=== PATIENT | male | born 1960 | race Caucasian/White ===

== ENCOUNTER 2021-06-03 12:05 | Day surgery (SDC) | payer MEDICAID, MEDICARE ==
[2021-05-28 15:16] VITALS: BMI 26.9
[~2021-06-03 12:05] MED LIST: ACETAMINOPHEN TAB 500 MG TAB PO PRN; DEXAMETHASONE SOD PHOSPHATE 4 MG/ML 1 ML VIAL IV ONE; HEPARIN SODIUM,PORCINE/PF 5,000 UNIT/0.5 ML SYRINGE SQ PRN; HYDROmorphone 0.5 MG/0.5 ML SYRINGE IVP PRN; LACTATED RINGERS 1,000 ML IV SCH; LIDOCAINE 1% (10MG/ML) FOR IV START INTRADERMA PRN; MIDAZOLAM 2 MG/2 ML VIAL IV PRN; ONDANSETRON 4 MG/2 ML VIAL IVP ONE; Pre Op ABX Message 1 EACH MISC MISCELLANE ONE; fentaNYL (PF) 50 MCG/ML 2 ML AMP IV PRN
--- NOTE | 2021-06-03 13:41 | P.GSHP ---
History of Present Illness H&P Date: 06/03/21 Chief Complaint: Pancreatic cancer 61-year-old male here today for Port-A-Cath placement. Patient recently diagnosed with pancreatic cancer. Had a biliary stent placed. Starting chemotherapy next week. He has not had a port previously. Past Medical History Past Medical History: Cancer, COPD, Fibromyalgia, GERD/Reflux, Hyperlipidemia Additional Past Medical History / Comment(s): pancreatic CA-dx [id number] and gas discomfort,was having jaundic,SOB w/ activity History of Any Multi-Drug Resistant Organisms: None Reported Past Surgical History: Appendectomy, Cholecystectomy Additional Past Surgical History / Comment(s): stent insert bile duct @ [facility] Past Anesthesia/Blood Transfusion Reactions: No Reported Reaction Additional Past Anesthesia/Blood Transfusion Reaction / Comment(s): no hx blood transfusion Smoking Status: Vaper - Past Family History Mother Family Medical History: No Reported History Father Additional Family Medical History / Comment(s): mesothelioma Brother(s) Family Medical History: Cancer Additional Family Medical History / Comment(s): testicular CA-older brother,skin CA-younger brother Medications and Allergies Home Medications Medication Instructions Recorded Confirmed Type DULoxetine HCL [Cymbalta] 30 mg PO QAM 05/28/21 06/03/21 History Gabapentin 800 mg PO TID 05/28/21 06/03/21 History HYDROcodone/APAP 10-325MG [[place] 1 tab PO Q6HR 05/28/21 06/03/21 History 10-325] Omeprazole 20 mg PO HS 05/28/21 06/03/21 History Rosuvastatin Calcium [Crestor] 40 mg PO DAILY 05/28/21 06/03/21 History Allergies Allergy/AdvReac Type Severity Reaction Status Date / Time itraconazole [From Sporanox] Allergy severe Verified 05/28/21 15:02 hives,flushing Penicillins Allergy feet Verified 05/28/21 15:02 swelling Surgical - Exam Vital Signs Temp Pulse Resp BP Pulse Ox 97.5 F L 74 16 124/74 95 06/03/21 12:35 06/03/21 12:35 06/03/21 12:35 06/03/21 12:35 06/03/21 12:35 Physical exam: General: Well-developed, well-nourished HEENT: Normocephalic, sclerae nonicteric Abdomen: Nontender, nondistended Extremities: No edema Neuro: Alert and oriented Assessment and Plan (1) Pancreatic cancer Narrative/Plan: Will proceed with Port-A-Cath placement at this time. Risks of bleeding, infection, DVT, pneumothorax, catheter malfunction, anesthesia related complications were discussed. The patient understands and wishes to proceed. Current Visit: Yes Status: Acute Code(s): C25.9 - MALIGNANT NEOPLASM OF PANCREAS, UNSPECIFIED SNOMED Code(s): 838300805
[2021-06-03] MEDS ORDERED: HEPARIN SODIUM,PORCINE/PF 5,000 UNIT/0.5 ML SYRINGE SQ STA (13:42)
[2021-06-03] MEDS ORDERED: CLINDAMYCIN 600 MG in DEXTROSE 5% IN WATER 50 ML IVPB STA ×2 (13:44)
[2021-06-03] MEDS ORDERED: MIDAZOLAM 2 MG/2 ML VIAL ONE (13:55)
[2021-06-03] MEDS ORDERED: fentaNYL (PF) 50 MCG/ML 2 ML AMP ONE (13:55)
[2021-06-03] MEDS ORDERED: ePHEDrine SULFATE/0.9% NACL/PF 50 MG/5 ML SYRINGE IV ONE (13:55)
[2021-06-03] MEDS ORDERED: PROPOFOL 10 MG/ML 20 ML VIAL IV ONE (13:55)
[2021-06-03] MEDS ORDERED: LIDOCAINE 1% INJ 10MG/ML (20 ML MDV) ONE (13:55)
[2021-06-03] MEDS ORDERED: SODIUM CHLORIDE 0.9% 100 ML with ceFAZolin 2,000 MG IV ONE ×2 (14:15)
[2021-06-03] MEDS ORDERED: HEPARIN SODIUM,PORCINE 100 UNIT/ML 5 ML VIAL IV ONE (14:18)
[2021-06-03] MEDS ORDERED: LIDOCAINE (PF) 10 MG/ML 2 ML VIAL SQ ONE (14:18)
[2021-06-03 14:54] VITALS: TEMP 97.8
[2021-06-03] MEDS ORDERED: HYDROcodone/APAP 5-325MG 1 EACH TAB PO PRN (14:54)
[2021-06-03] MEDS ORDERED: NALOXONE 0.4 MG/ML 1 ML VIAL IV PRN (14:54)
--- NOTE | 2021-06-03 14:56 | P.OP ---
Date of Procedure: 06/03/21 Procedure(s) Performed: PREOPERATIVE DIAGNOSIS: Pancreatic cancer POSTOPERATIVE DIAGNOSIS: Same PROCEDURE: Port-A-Cath placement with fluoroscopic and ultrasound guidance SURGEON: Amanda EBL: Minimal ANESTHESIA: Sedation COMPLICATIONS: None OPERATIVE PROCEDURE: Patient was brought and placed on the operative table in the supine position. The patient was sedated per anesthesia that time. The chest and neck were prepped and draped in usual sterile fashion. The ultrasound probe was used to identify the location of the right internal jugular vein. The skin was localized with lidocaine. The Seldinger needle was advanced into the IJ under ultrasound guidance. The wire was advanced through the needle under fluoroscopic guidance into the superior vena cava. A port pocket was created in the right infraclavicular location. The catheter was tunneled from the wire entrance site to the port pocket. The port was then connected to the catheter. The dilator introducer was threaded over the guidewire. The guidewire and dilator were then removed. The catheter was advanced through the introducer and introducer was then removed. The tip was seen to be in the right atrial junction via fluoroscopy. A picture of the radiograph showing the tip at the radial digital junction was taken. Port was flushed with both saline and a Hep- Lock solution. There was good flow both in and out of the port. The port was sutured in underlying tissues using 3-0 silk sutures. The subcutaneous tissues were reapproximated using 3-0 Vicryl sutures and the skin at both locations using 4-0 Monocryl sutures. Skin glue and sterile dressings then applied. DISPOSITION: Stable to recovery room
[2021-06-03 15:04] VITALS: RESP 16
[2021-06-03] MEDS ORDERED: HYDROmorphone 0.5 MG/0.5 ML SYRINGE IVP ONE ×2 (15:22→15:28)
--- NOTE | 2021-06-03 15:39 | XR ---
EXAMINATION TYPE: XR chest 1V portable DATE OF EXAM: 06/03/2021 COMPARISON: NONE HISTORY: Port-A-Cath placement TECHNIQUE: Single frontal view of the chest is obtained. FINDINGS: There is no focal air space opacity, pleural effusion, or pneumothorax seen. The cardiac silhouette size is within normal limits. Port-A-Cath is present over the right chest, catheter tip is overlying the superior vena cava. Catheter courses via the internal jugular approach. Interstitium is prominent. The osseous structures are intact. IMPRESSION: No evident complication status post Port-A-Cath placement.
[2021-06-03] MEDS ORDERED: LACTATED RINGERS 1,000 ML IV ONE (15:45)
--- NOTE | 2021-06-03 16:17 | FL ---
Fluoroscopy HISTORY: Port-A-Cath catheter placement 10 seconds fluoroscopy time supplied to the referring clinician. 5 intraoperative C-arm images docum ent the procedure. See dictated report from general surgery.
[2021-06-03 16:18] VITALS: BP 112/69; PULSE 82
== END 2021-06-03 16:43 | disposition home or self-care (01) ==
LOC: OR 12:05
PROVIDERS: ATTEND Surgery
DX: C25.9 Malignant neoplasm of pancreas, unspecified (principal); J44.9 Chronic obstructive pulmonary disease, unspecified; E78.5 Hyperlipidemia, unspecified; K21.9 Gastro-esophageal reflux disease without esophagitis; M79.7 Fibromyalgia; Z88.0 Allergy status to penicillin; Z88.3 Allergy status to other anti-infective agents; Z90.49 Acquired absence of other specified parts of digestive tract
CPT/HCPCS: 36561; 77001; 71045; C1788; J2250; J2001 ×2; J1642; J1100; J2405; J0690; J3010; J2704; J1170; J1644

== ENCOUNTER → 2021-07-29 | Outpatient (CLI) | payer MEDICARE ==
[2021-07-29 11:37] LABS: African American GFR (CKD) >90 (>60 ml/min/1.73 sqM); Blood Urea Nitrogen 14 mg/dL (9-20); Non-African American GFR(CKD) >90 (>60 ml/min/1.73 sqM)
--- NOTE | 2021-07-29 13:50 | CT ---
EXAMINATION TYPE: CT ChestAbdPelvis w con DATE OF EXAM: 07/29/2021 COMPARISON: None at this institution. HISTORY: Cancer head of pancreas CT DLP: 1815 mGycm. Automated Exposure Control for Dose Reduction was Utilized. CONTRAST: CT scan of the thorax, abdomen and pelvis is performed with oral contrast and water and with IV Contr ast, patient injected with 100 ml mL of Isovue 300. FINDINGS: LUNGS: Moderate underlying emphysematous changes are present.. Mild biapical scarring. No suspicious nodules or masses. No pleural effusion or pneumothorax. No focal consolidation. MEDIASTINUM: There are no greater than 1 cm hilar or mediastinal lymph nodes. No cardiomegaly or pamela cardial effusion is seen. OTHER: Right internal jugular Mediport catheter terminates in SVC. LIVER/GB: Liver is markedly heterogeneously hypodense consistent with diffuse fatty infiltration. Melanie er upper limits of normal in size. Pneumobilia is present. There is extrahepatic biliary metallic irvin nt noted. No suspicious biliary dilatation. PANCREAS: Pancreas overall heterogeneous in appearance particularly in the head and proximal body wit h mild to moderate ill-defined fluid at the level of the pancreatic tail. Likely some pancreatic duct al dilatation in the body axial image 72. Areas more heterogeneous fullness likely mass near the head uncinate process junction with indistinct fat plane from the adjacent duodenal sweep measuring 3.2 x 2.7 cm axial image 78. Just inferior and anterior to the proximal to mid pancreatic body there is ov al 2.7 x 1.7 cm lesion axial image 79 just posterior to the gastric antrum could reflect abnormal low dense adenopathy. SPLEEN: No significant abnormality is seen. ADRENALS: No significant abnormality is seen. KIDNEYS: Symmetric cortical medullary uptake and excretion without hydronephrosis seen bilaterally. BOWEL: An air-fluid level in the mild to moderately distended stomach. No suspicious small or large b owel dilatation. GENITAL ORGANS: Mildly enlarged prostate consistent with BPH. Scattered right-sided pelvic phlebolith s. LYMPH NODES: Prominent but subcentimeter additional lymph nodes in the region of the pancreatic head and tracey hepatis are noted.. OSSEOUS STRUCTURES: No significant abnormality is seen. OTHER: No significant additional abnormality is seen. IMPRESSION: Metallic biliary stent presumed patent as there is no significant biliary dilatation as t here is central pneumobilia. Pancreatic findings as detailed above should be correlated with pretreat ment images . No obvious metastatic disease.
== END | disposition home or self-care (01) ==
LOC: RADCTMAIN 10:43
PROVIDERS: ATTEND Internal Medicine Hematology & Oncology
DX: C25.0 Malignant neoplasm of head of pancreas (principal)
CPT/HCPCS: 82565; 84520; 71260; 74177; 36415; Q9967

== ENCOUNTER → 2021-09-27 | Outpatient (CLI) | payer MEDICARE ==
[2021-09-27 11:32] LABS: African American GFR (CKD) >90 (>60 ml/min/1.73 sqM); Blood Urea Nitrogen 10 mg/dL (9-20); Non-African American GFR(CKD) >90 (>60 ml/min/1.73 sqM)
--- NOTE | 2021-09-27 13:07 | CT ---
EXAMINATION TYPE: CT ChestAbdPelvis w con DATE OF EXAM: 09/27/2021 COMPARISON: 07/29/2021 HISTORY: h/o pancreatic CA CT DLP: 1001.9 mGycm CONTRAST: CT scan of the chest, abdomen and pelvis is performed with Oral Contrast and with IV Contrast, patien t injected with 100 mL of Isovue 300. CT Chest: LUNGS: Stable emphysematous changes noted. The lungs are clear and free of infiltrate or atelectasis. No pulmonary nodule or mass is detected. No pleural effusion or CT evidence of interstitial lung d isease. MEDIASTINUM: Thoracic aorta is of normal caliber. The heart is not enlarged. No evidence for media stinal mass or adenopathy. HILAR STRUCTURES: No evidence for mass. No hilar adenopathy is appreciated. OTHER: No significant abnormality. CONTRAST CT ABDOMEN AND PELVIS FINDINGS: LIVER/GB: Persistent hepatomegaly with pneumobilia. Biliary stent noted to be in place. No calcifie d gallstones. No space occupying hepatic lesion. Biliary tree is of normal caliber. PANCREAS: Pancreatic head mass measuring 3.7 x 2.8 cm versus a 3.2 x 2.7 cm previously. SPLEEN: No splenic enlargement. No lesion seen. ADRENALS: No nodule. No thickening. KIDNEYS/BLADDER: No hydronephrosis. Nonobstructing right renal calculus is stable. No distinct renal mass. BOWEL: Normal appendix. Normal bowel caliber. No inflammation. GENITAL ORGANS: No gross abnormality. LYMPH NODES: Adenopathy within the lesser sac measuring 2 cm. AORTA: No significant abnormality. OSSEOUS STRUCTURES: No significant abnormality is seen. OTHER: No significant additional abnormality is seen. IMPRESSION: 1. Pancreatic head mass appears to be slightly more prominent on today's study. Stent is noted to be unchanged in position. Several surrounding peripancreatic lymph nodes redemonstrated.
== END | disposition home or self-care (01) ==
LOC: RADCTMAIN 10:50
PROVIDERS: ATTEND Internal Medicine Hematology & Oncology
DX: C25.0 Malignant neoplasm of head of pancreas (principal)
CPT/HCPCS: 82565; 84520; 71260; 74177; 36415; Q9967